=== PATIENT | female | born 1975 | race Two or more races ===

== ENCOUNTER 2016-06-09 12:46 | Emergency (ER) | payer MEDICAID ==
[2016-06-09 12:56] VITALS: RESP 16
[2016-06-09] MEDS ORDERED: ACETAMINOPHEN 325 MG TAB PO ONE (13:56)
[2016-06-09] MEDS ORDERED: AMOXICILLIN/CLAVULANATE POT 875/125 MG TAB PO ONE (13:56)
--- NOTE | 2016-06-09 13:58 | EDPHY ---
H & P Stated Complaint: r ear pain Time Seen by Provider: 06/09/16 13:01 HPI/ROS: CHIEF COMPLAINT: Right ear pain HISTORY OF PRESENT ILLNESS: 40-year-old female presents emergency department with URI symptoms x3 weeks with cough, nasal congestion, sinus pressure. Patient states she felt like this was allergies at 1st, she then developed a sore throat last week and 3 days ago developed right ear pain, this morning she noticed bloody drainage out of her ear. She reports subjective fevers and chills, no chest pain or shortness of breath. Multiple sick contacts. Patient has not taken any [id number] medications. She reports multiple ear infections as a child. REVIEW OF SYSTEMS: A comprehensive 10 point review of systems is otherwise negative aside from elements mentioned in the history of present illness. Source: Patient Exam Limitations: No limitations - Personal History LMP (Females 10-55): 15-21 Days Ago Current Tetanus/Diphtheria Vaccine: Yes - Medical/Surgical History Hx Asthma: No Hx Chronic Respiratory Disease: No Hx Diabetes: No Hx Cardiac Disease: No Hx Renal Disease: No Hx Cirrhosis: No Hx Alcoholism: Yes Hx HIV/AIDS: No Hx Splenectomy or Spleen Trauma: No Other PMH: Pancreatitis - Social History Smoking Status: Current every day smoker - Physical Exam Exam: General: Alert, nontoxic. ENT: Right TM ruptured with serosanguineous drainage, erythema and swelling to external auditory canal, left TM normal. Nasopharynx is injected, there is yellow rhinorrhea. Right-sided maxillary and frontal sinus tenderness to palpation, Oropharynx with erythema, no edema. There is no exudate. No tonsillar hypertrophy. No asymmetry. The uvula is midline. No elevation of tongue. There is no hoarseness. No drooling, patient has good control of their oral secretions. No trismus. No stridor. Cardiac: Regular rate and rhythm. Respiratory: Lungs clear to auscultation bilaterally. Neurological: no meningismus. Skin: No rashes. Constitutional: Initial Vital Signs Temperature (C) 36.6 C 06/09/16 12:54 Heart Rate 95 06/09/16 12:54 Respiratory Rate 16 06/09/16 12:54 Blood Pressure 151/97 H 06/09/16 12:54 O2 Sat (%) 97 06/09/16 12:54 O2 Delivery Mode Room Air Allergies/Adverse Reactions: morphine Allergy (Verified 06/09/16 12:53) Home Medications: Medication Instructions Recorded Amoxicillin/Clavulanate Pot 875 mg PO BID #20 tab 06/09/16 [Augmentin 875Mg] Celexa 06/09/16 Fluticasone Nasal [Flonase Nasal 1 sprays NASAL DAILY #1 mdi 06/09/16 [place] (RX)] Hydrocodone/APAP 5/325 [[place] 1 tab PO Q4H PRN #7 tab 06/09/16 5/325] Medical Decision Making ED Course/Re-evaluation: 40-year-old nontoxic-appearing female with normal vital signs and normal room air oxygen saturations presents with URI symptoms x3 weeks. Patient will be treated for sinusitis and a right otitis media with ruptured TM. She is discharged with Augmentin, Flonase and [place]. She agrees to follow up with ENT in 5-7 days. She is given strict return precautions for worsening symptoms. Differential Diagnosis: Diagnosis considered but not limited to strep pharyngitis, viral pharyngitis, sinusitis, Jesus Alberto's angina, otitis media - Data Points Medications Given: Discontinued Medications Acetaminophen (Tylenol) 650 mg PO EDNOW ONE Stop: 06/09/16 13:57 Last Admin: 06/09/16 14:18 Dose: 650 mg Amoxicillin/Clavulanate Potassium (Augmentin 875mg) 875 mg PO EDNOW ONE PRN Reason: Protocol Stop: 06/09/16 13:57 Last Admin: 06/09/16 14:18 Dose: 875 mg Departure - Departure Disposition: Home, Routine, Self-Care Clinical Impression: Right otitis media with spontaneous rupture of eardrum Sinusitis, acute Qualifiers: Sinusitis location: frontal Recurrence: non-recurrent Qualified Code(s): J01.10 - Acute frontal sinusitis, unspecified Condition: Good Instructions: Sinusitis (ED), Ruptured Eardrum (ED), Otitis Media (ED) Additional Instructions: Take 600 mg of ibuprofen every 8 hours with food, take antibiotics as prescribed , use Flonase 1 spray in each nostril daily for 7 days, take 1 [place] every 6-8 hours as needed for severe pain. Return to the emergency department for worsening symptoms, follow up with the Ear Nose and Throat doctor for re- evaluation in 5-7 days. Referrals: Chris Whitt MD [Medical Doctor] - As per Instructions (ENT on-call) Prescriptions: Amoxicillin/Clavulanate Pot [Augmentin 875Mg] 875 mg PO BID #20 tab Fluticasone Nasal [Flonase Nasal [place] (RX)] 1 sprays NASAL DAILY #1 mdi Hydrocodone/APAP 5/325 [[place] 5/325] 1 tab PO Q4H PRN #7 tab PRN Reason: Pain, Moderate
[2016-06-09 14:19] VITALS: BP 170/110; PULSE 82; TEMP 98.4; O2SAT 96
== END 2016-06-09 14:19 | disposition home or self-care (01) ==
DX: H72.91 Unspecified perforation of tympanic membrane, right ear (principal); F17.200 Nicotine dependence, unspecified, uncomplicated; J01.10 Acute frontal sinusitis, unspecified

== ENCOUNTER 2017-10-04 18:44 | Emergency (ER) | payer MEDICAID ==
[2017-10-04] MEDS ORDERED: LORazepam 2 MG/ML INJ IVP ONE (18:55)
--- NOTE | 2017-10-04 18:59 | EDPHY ---
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 She was in a meeting, fell out of the chair and had witnessed tonic colonic activity. On EMS arrival, she was alert and oriented and not postictal. Last alcoholic intake was 3 days ago. She usually drinks a pint of whiskey daily. Has felt shaky and tachycardic over the past 3 days, associated with difficulty sleeping. No prior seizure history. Last menstrual period was 5 weeks ago. Does not drive an automobile because she does not have a license. REVIEW OF SYSTEMS: complete 10 point ROS negative except at noted in the HPI - Personal History LMP (Females 10-55): 15-21 Days Ago Current Tetanus Diphtheria and Acellular Pertussis (TDAP): Yes - Medical/Surgical History Hx Asthma: No Hx Chronic Respiratory Disease: No Hx Diabetes: No Hx Cardiac Disease: No Hx Renal Disease: No Hx Cirrhosis: No Hx Alcoholism: Yes Hx HIV/AIDS: No Hx Splenectomy or Spleen Trauma: No Other PMH: Pancreatitis, etoh abuse - Social History Smoking Status: Current every day smoker Alcohol Use: Heavy Drug Use: None - Physical Exam Exam: General Appearance: Alert, pleasant, cooperative Eyes: Pupils equal and round, no conjunctival pallor or injection ENT, Mouth: Mucous membranes moist Neck: Normal inspection, no tenderness Respiratory: Lungs are clear to auscultation Cardiovascular: Regular tachycardia Gastrointestinal: Abdomen is soft and nontender Neurological: A&O, mild resting tremor, nonfocal, normal gait Skin: Warm and dry Extremities: Scattered ecchymoses on the extremities Psychiatric: Mood and affect normal Constitutional: Initial Vital Signs Temperature (C) 37.1 C 10/04/17 18:50 Heart Rate 109 H 10/04/17 18:50 Respiratory Rate 18 10/04/17 18:50 Blood Pressure 168/101 H 10/04/17 18:50 O2 Sat (%) 96 10/04/17 18:50 O2 Delivery Mode Room Air Allergies/Adverse Reactions: morphine Allergy (Verified 06/09/16 12:53) Home Medications: Medication Instructions Recorded Amoxicillin/Clavulanate Pot 875 mg PO BID #20 tab 06/09/16 [Augmentin 875Mg] Celexa 06/09/16 Fluticasone Nasal [Flonase Nasal 1 sprays NASAL DAILY #1 mdi 06/09/16 [place] (RX)] Hydrocodone/APAP 5/325 [[place] 1 tab PO Q4H PRN #7 tab 06/09/16 5/325] chlordiazePOXIDE 25MG PREPK#6 1 btl TAKEHOME Q6 PRN #1 btl 10/04/17 [Librium 25 mg Prepack#6] Medical Decision Making - Diagnostics EKG Interpretation: EKG interpreted by me reveals sinus tachycardia, rate 102, no ST or T segment changes. Interpretation: borderline EKG Imaging Results: Head CT 10/04/17 18:55 Impression: Normal. No source for seizure identified. Results called to Dr. Marie at 7:40 PM. General information for patients regarding this examination can be found at [email or web address]. If you have questions or comments about this report, please contact me at [phone] (hospital) or [phone] (cell). Imaging: Discussed imaging studies w/ house calls nurse Radiologist, I viewed and interpreted images myself ED Course/Re-evaluation: This patient presents with new onset seizure, most likely secondary to alcohol withdrawal. IV normal saline 2 L and Ativan 0.5 mg IV x 2 given. Potassium 2.8, advised admission for alcohol withdrawal and hypokalemia, pt refuses. Has a MH eval in the morning and doesn't want to miss it. She is a competent decision maker and is currently aware of the risks/benefits of this decision. Potassium IV/po given. Patient feels much better after IV fluids and Ativan. Advised to follow up for recheck of potassium in 1-2 days and assistance with alcohol withdrawal. Warning signs discussed. Encouraged to return for worsening symptoms. Seizure precautions given. Differential Diagnosis: Differential diagnosis includes though it is not limited to status epilepticus, hypoglycemia, intracranial hemorrhage, CVA, benzodiazepine withdrawal, alcohol withdrawal, epilepsy. - Data Points Laboratory Results: Laboratory Results 10/04/17 18:55 10/04/17 18:55 Medications Given: Discontinued Medications Potassium Chloride (Potassium Cl 10 Meq (Premix)) 100 mls @ 100 mls/hr IV EDNOW ONE Stop: 10/04/17 20:22 Last Admin: 10/04/17 19:54 Dose: 100 mls Lorazepam (Ativan Injection) 0.5 mg IVP EDNOW ONE Stop: 10/04/17 18:56 Last Admin: 10/04/17 19:03 Dose: 0.5 mg Potassium Chloride (Klor-Con) 20 meq PO EDNOW ONE Stop: 10/04/17 19:23 Last Admin: 10/04/17 19:36 Dose: 20 meq Departure - Departure Disposition: Home, Routine, Self-Care Clinical Impression: Alcohol withdrawal seizure Qualifiers: Complication of substance-induced condition: uncomplicated Qualified Code(s): F10.230 - Alcohol dependence with withdrawal, uncomplicated Condition: Good Instructions: Alcohol Withdrawal (ED) Additional Instructions: I have advised you to be admitted. You had a seizure related to alcohol withdrawal. I have prescribed Librium to help with alcohol withdrawal. General guidelines for seizures: 1. No driving until you are cleared by a neurologist to drive. 2. No dangerous activities such as riding a ski lift, swimming in a pool or other behavior that could put you or someone else at risk in the event of a recurrent seizure. You will need to be cleared by a neurologist to resume these activities. 3. Please return to the ED for recurrent seizure, headache, numbness, weakness, altered mental status or other concerns. 4. Please call the referral neurologist promptly to schedule a follow-up appointment. Your potassium is low today. You received IV and oral potassium in the ED. Please have your potassium rechecked in 1-2 days. Referrals: [facility] [Outside] - As per Instructions Idalia Ceron MD [Medical Doctor] - 1-2 days without fail (Call to make an appointment.) Som Marie DO [Medical Doctor] - As per Instructions Prescriptions: chlordiazePOXIDE 25MG PREPK#6 [Librium 25 mg Prepack#6] 1 btl TAKEHOME Q6 PRN # 1 btl PRN Reason: alcohol withdrawal
[2017-10-04 19:17] LABS: PLATELET COUNT 123 10^3/uL (150-400)
[2017-10-04] MEDS ORDERED: POTASSIUM CL 10 MEQ TAB PO ONE (19:22)
[2017-10-04] MEDS ORDERED: POTASSIUM Cl (KCl) 100 ML IV ONE (19:23)
[2017-10-04 21:08] VITALS: BP 145/100
== END 2017-10-04 21:07 | disposition home or self-care (01) ==
LOC: EDUNIT#
DX: F10.239 Alcohol dependence with withdrawal, unspecified (principal); R56.9 Unspecified convulsions; F17.200 Nicotine dependence, unspecified, uncomplicated
CPT/HCPCS: 96365; J2060; J3480

== ENCOUNTER 2017-10-14 21:15 | Emergency (ER) | payer MEDICAID, OTHER ==
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
[2017-10-14] MEDS ORDERED: NS 1,000 ML IV ONE (21:19)
[2017-10-14 22:34] LABS: PLATELET COUNT 243 10^3/uL (150-400)
[2017-10-14 23:55] VITALS: BP 112/70
== END 2017-10-15 00:22 | disposition home or self-care (01) ==
LOC: EDUNIT#
DX: F10.231 Alcohol dependence with withdrawal delirium (principal); E86.9 Volume depletion, unspecified; Z87.19 Personal history of other diseases of the digestive system; F17.200 Nicotine dependence, unspecified, uncomplicated
CPT/HCPCS: G0480

== ENCOUNTER 2017-10-30 10:30 | Emergency (ER) | payer OTHER ==
[2017-10-30] MEDS ORDERED: HALOPERIDOL LACT 5 MG/ML INJ IVP ONE (10:39)
--- NOTE | 2017-10-30 10:45 | EDPHY ---
H & P - Medical/Surgical History Hx Asthma: No Hx Chronic Respiratory Disease: No Hx Diabetes: No Hx Cardiac Disease: No Hx Renal Disease: No Hx Cirrhosis: No Hx Alcoholism: Yes Hx HIV/AIDS: No Hx Splenectomy or Spleen Trauma: No Other PMH: Pancreatitis, etoh abuse - Social History Smoking Status: Current every day smoker Time Seen by Provider: 10/30/17 10:44 HPI/ROS: CHIEF COMPLAINT: "Those fucking whores suck" HISTORY OF PRESENT ILLNESS: 41-year-old female history of alcoholism, seen the ER previously for acute alcohol use and alcohol withdrawal seizure arrives via ambulance after she was found running up and down the street, yelling, cursing at people and cars. She was not given pre-hospital sedation. By the time I evaluate the patient the ER physician had ordered Haldol and the patient has calmed slightly. I am able to redirect her as she repeatedly starts cursing about the police and the women who are staying with her, however if I talk to her about her work and personal issues I am able to redirect her and she calms down significantly. She denies acute alcohol or drug use. She denies trauma. Denies suicidal or homicidal ideation.. REVIEW OF SYSTEMS: 10 systems reviewed and negative with the exception of the elements mentioned in the history of present illness PAST MEDICAL/SURGICAL HISTORY: In reviewing the patient's old medical records, reports of alcoholism, alcohol withdrawal seizure no anticoagulant use, no psychiatric history listed. She denies psychiatric disorder history. SOCIAL HISTORY: denies alcohol use at time of incident PHYSICAL EXAM 1) GENERAL: Well-developed, well-nourished, alert and oriented. Intermittently agitated. I am able to redirect her when speaking about professional issues in her life. 2) HEAD: Normocephalic, atraumatic 3) HEENT: Pupils equal, round, reactive to light bilaterally. Negative Horners. Nasopharynx, oropharynx, clear. No deformity or angulation of nose. No septal hematoma. No rhinorrhea. No oral trauma. Ears bilaterally with normal tympanic membranes. No hemotympanum. No fluid or blood in the external auditory canal. No raccoon eyes. No Cox sign. T 4) NECK: No cervical collar is on. Posterior cervical spine is nontender, no stepoff, no effusion. Full range of motion which does not elicit any midline cervical spine pain, no posterior midline tenderness, no step-off. 5) LUNGS: Clear to auscultation bilaterally, no wheezes, no rhonchi, no retractions. No obvious signs of trauma. No chest wall pain. No flaring, no grunting. Moving symmetrically. No crepitus. 6) HEART: Regular rate and rhythm, 7) ABDOMEN: No guarding, no rebound, no focal tenderness, no peritoneal signs, no signs of trauma, no ecchymosis 8) MUSCULOSKELETAL: Moving all extremities, no focal areas of tenderness, no obvious trauma. 9) BACK: No midline vertebral tenderness, no fluctuance, no step-off, no obvious trauma, no visual or palpable abnormality. 10) SKIN: No laceration. No abrasion 11) psychiatric: Patient will be intermittently cooperative and then will start yelling and cursing suddenly without obvious explanation. DIFFERENTIAL DIAGNOSIS: In no particular order including but not limited to hypoglycemia, infectious process, Wernickes encephalopathy, alcoholic hallucinosis electrolyte abnormality, head injury and intoxicants. (Munir Harris) Constitutional: Initial Vital Signs Temperature (C) 36.8 C 10/30/17 10:30 Heart Rate 112 H 10/30/17 10:30 Respiratory Rate 16 10/30/17 10:30 Blood Pressure 140/88 H 10/30/17 10:30 O2 Sat (%) 96 10/30/17 10:30 O2 Delivery Mode Room Air O2 (L/minute) 2 Allergies/Adverse Reactions: morphine Allergy (Verified 10/14/17 21:22) Home Medications: Medication Instructions Recorded Amoxicillin/Clavulanate Pot 875 mg PO BID #20 tab 06/09/16 [Augmentin 875Mg] Celexa 06/09/16 Fluticasone Nasal [Flonase Nasal 1 sprays NASAL DAILY #1 mdi 06/09/16 [place] (RX)] Hydrocodone/APAP 5/325 [Bivins 1 tab PO Q4H PRN #7 tab 06/09/16 5/325] chlordiazePOXIDE 25MG PREPK#6 1 btl TAKEHOME Q6 PRN #1 btl 10/04/17 [Librium 25 mg Prepack#6] Celexa 10/14/17 Medical Decision Making - Diagnostics Imaging Results: Imaging Impressions Head CT 10/30/17 13:36 Impression: Normal brain. No acute intracranial hemorrhage, subdural hematoma, or evidence of ischemia. Findings discussed with Emergency Department physician therapeutic assistant, Munir Harris on 10/30/2017, 14:39. Images reviewed myself (Munir Harris) ED Course/Re-evaluation: 11:05 a.m.: I have reviewed this patient's old medical records. Patient was also seen exam by Dr. Alexus Marie in the ER. Specific etiology of her symptoms incompletely clear at this time, may be related to acute drug or alcohol use, may be related to underlying psychotic disorder , . doubt trauma in absence of reported or visible signs of trauma 11:40 a.m.: Patient received intramuscular Haldol remains agitated, she attempted to flee the emergency department. Will administer IV Ativan. 11:58 a.m.: Patient was still agitated was given IV Ativan at this time she is now somnolent. At this time also however her serum glucose obtained 45 min ago was 67. I cannot administer oral glucose or provide food at this time given her somnolence and will therefore administer ampule of D50. 5:00 p.m.: Care of the patient turned over to Dr. Pérez Bella at this time. She has been re-evaluated with repeat, serial examinations by myself. She remains sleeping, on monitoring coordinator. She will need to sober and be more awake until further provider can assess her more adequately. (Munir Harris) Other Provider: Care assumed at [address] Marie. PHYSICIAN DOCUMENTATION: The patient was evaluated and managed by the Physician Senior Qa Analyst and myself. I have reviewed the chart and agree with the findings and plan of care as documented. In addition, I examined the patient myself at 1515. History confirmed through reading the chart, the patient is not able to talk to me at this time.Physical findings as follows: She is sleepy, does move all 4 extremities spontaneously, will respond to loud voice or sternal rub but otherwise continues to sleep. Likely due to sedation medications she received in the emergency department. Plan serial examinations. 2043: Medically cleared for psychiatric evaluation. 2299: Signed out to [facility] with mental health evaluation pending. Thiamine 100 mg given. I am the secondary supervising physician. (Pérez Bella) 5:30 a.m.- The patient has been sleeping for most of my shift. Nurse reports that she did eat dinner and has been up to the bathroom. She was not able to complete her mental health evaluation, likely because of sedation from medication she received and general fatigue. She says she has not slept for several days. 6:30 a.m.- I was able to arouse the patient. She says that she takes Celexa for anxiety and depression and is followed by [facility]. She does not recall the events leading to her arrival in the emergency department. She says that she was feeling very anxious because of a court date she had with her previous partner. She thinks she had an anxiety attack. She can tell me that it is October though thinks it is the . She is otherwise oriented. She denies any suicidal ideation. She is awaiting a reassessment in the morning. The case will be signed out to Dr. Miner at change of shift.. (Gisela Rene) I assumed care of the patient at 0700. 8:00 a.m.: The patient was evaluated by Psychiatry. She is no longer psychotic. She contracts for safety. She was evaluated by Mental Health. It is certainly likely she had symptoms related to fairly significant anxiety. The patient has been provided with outpatient resources. She is discharged home with customary aftercare instructions and return precautions. (Julio Cesar Miner) - Data Points Laboratory Results: Laboratory Results 10/30/17 11:15 10/30/17 11:15 10/30/17 20:12 Urine Opiates Screen NEGATIVE (NEGATIVE) Urine Barbiturates NEGATIVE (NEGATIVE) Ur Phencyclidine Scrn NEGATIVE (NEGATIVE) Ur Amphetamine Screen NEGATIVE (NEGATIVE) U Benzodiazepines Scrn NON-NEGATIVE H (NEGATIVE) Urine Cocaine Screen NEGATIVE (NEGATIVE) U Marijuana (THC) Screen NON-NEGATIVE H (NEGATIVE) Medications Given: Discontinued Medications Dextrose (Dextrose 50% Syringe) 25 gm IVP EDNOW ONE Stop: 10/30/17 11:59 Last Admin: 10/30/17 12:00 Dose: 25 gm Folic Acid (Folic Acid) 1 mg PO EDNOW ONE Stop: 10/30/17 11:03 Last Admin: 10/30/17 11:25 Dose: 1 mg Haloperidol Lactate (Haldol Injection) 5 mg IVP EDNOW ONE Stop: 10/30/17 10:40 Last Admin: 10/30/17 10:39 Dose: 5 mg Lorazepam (Ativan Injection) 2 mg IVP EDNOW ONE Stop: 10/30/17 11:41 Last Admin: 10/30/17 11:48 Dose: 2 mg Thiamine HCl (Vitamin B-1) 100 mg PO EDNOW ONE Stop: 10/30/17 11:03 Last Admin: 10/30/17 11:24 Dose: 100 mg Thiamine HCl (Vitamin B-1) 100 mg IM EDNOW ONE Stop: 10/30/17 22:59 Last Admin: 10/30/17 23:36 Dose: Not Given Point of Care Test Results: Chemistry 10/30/17 13:00 POC Glucose 112 mg/dL H mg/dL (70-100) Departure - Departure Disposition: Home, Routine, Self-Care Clinical Impression: Anxiety Condition: Good Instructions: Anxiety (ED) Additional Instructions: 1. Please follow-up with the mental health resources provided in the ED today. 2. [facility] does operate a 01/09 psychiatric crisis unit located at [address] [place] [address]. The telephone number for the 24 hour crisis center is [phone]. 3. Please return to the ED if you are feeling suicidal, having thoughts of harming yourself/others or should you feel unsafe or have worsening symptoms. Referrals: [facility],. [Clinic] - As per Instructions
[2017-10-30] MEDS ORDERED: FOLIC ACID 1 MG TAB PO ONE (11:02)
[2017-10-30] MEDS ORDERED: THIAMINE HCL 100 MG TAB PO ONE (11:02)
[2017-10-30 11:31] LABS: PLATELET COUNT 124 10^3/uL (150-400)
[2017-10-30] MEDS ORDERED: LORazepam 2 MG/ML INJ IVP ONE (11:40)
[2017-10-30 11:52] LABS: CREATINE KINASE 178 IU/L (0-156)
[2017-10-30] MEDS ORDERED: D50W 25 GM/50 ML SYR IVP ONE ×2 (11:58)
[2017-10-30] MEDS ORDERED: THIAMINE HCL 200 MG/2 ML VIAL IM ONE (22:58)
--- NOTE | 2017-10-30 23:28 | ASMTLCPROG ---
Notes Note: Notes: Woke pt and attempted to eval. Pt was very difficult to follow but was oriented to where she was. She did believe she was talking to people earlier. Dr. Pérez Bella and I agree it appears like pt ingested some form of long acting toxin. Pt is sleeping again and difficult to rouse. Will attempt to re-eval in the morning. Date Signed: 10/30/2017 11:27 PM Electronically Signed By:Brandon Murcia
[2017-10-31 07:59] VITALS: BP 136/79
[2017-10-31] MEDS ORDERED: LORAZEPAM 1 MG PREPACK#4 BTL TAKEHOME ONE ×2 (08:41→08:44)
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
== END 2017-10-31 08:48 | disposition home or self-care (01) ==
LOC: EDUNIT# → EEVIPCON 10:30
DX: F41.8 Other specified anxiety disorders (principal); R45.1 Restlessness and agitation; E16.2 Hypoglycemia, unspecified; F10.20 Alcohol dependence, uncomplicated; F17.200 Nicotine dependence, unspecified, uncomplicated
CPT/HCPCS: 80305; 96374; G0480; J2060; J3411